=== PATIENT | male | born 1985 | race African-American/Black ===

== ENCOUNTER 2016-05-26 06:26 | Emergency (ER) | payer MEDICAID, OTHER ==
[~2016-05-26] VITALS: Ht 175.3 cm; Wt 90.7 kg
[~2016-05-26 06:26] MED LIST: IBUPROFEN600 MG ORAL
[2016-05-26 06:45] VITALS: BP 133/96
[2016-05-26 07:00] VITALS: BP 133/96
--- NOTE | 2016-05-26 07:27 | Emergency Room Report ---
History of Present Illness General Chief Complaint: Male Urogenital Problems Source: Patient Present Illness HPI 30-year-old male presents to ED for evaluation. Patient requests a female nurse as "witness". Patient states he is here for STD checkup. States he noticed a lesion on his penis a few days ago. Patient had a ready gone to [facility] for the same complaint. Patient was told there that he did not perform STD checks. Patient was recommended to go to any STD clinic but he has not gone. Patient came here. Patient denies any pain. Denies any fevers or chills. Denies any discharge. No other aggravating or relieving factors. Denies any other associated symptoms Allergies: Coded Allergies: BENZTROPINE (Verified Allergy, Unknown, 05/26/16) FLUPHENAZINE (Verified Allergy, Unknown, 05/26/16) HALOPERIDOL (Verified Allergy, Unknown, 05/26/16) LITHIUM (Verified Allergy, Unknown, 05/26/16) RISPERIDONE (Verified Allergy, Unknown, 05/26/16) ZIPRASIDONE (Verified Allergy, Unknown, 05/26/16) Patient History Past Medical History: psych hx Pertinent Family History: none Social History: Denies: alcohol use, drug use, smoking Immunizations: UTD Reviewed Nursing Documentation: PMH: Agreed, PSxH: Agreed Nursing Documentation-PMH History Of Psychiatric Problem: Yes - PTSD Review of Systems All Other Systems: negative except mentioned in HPI Physical Exam Vital Signs Date Time Temp Pulse Resp B/P Pulse Ox O2 Delivery O2 Flow Rate FiO2 05/26/16 06:30 97.9 66 18 133/96 99 Room Air Sp02 EP Interpretation: reviewed, normal General Appearance: no apparent distress, alert, GCS 15, non-toxic Head: normocephalic Eyes: bilateral eye PERRL, bilateral eye normal inspection ENT: normal ENT inspection Neck: normal inspection Respiratory: normal inspection Cardiovascular #1: normal inspection Gastrointestinal: normal bowel sounds, non tender, soft, non-distended, no guarding, no rebound Rectal: deferred Genitourinary: no CVA tenderness, other - chancre on penis. nontender Musculoskeletal: back normal Neurologic: alert, oriented x3, responsive, motor strength/tone normal, sensory intact, speech normal Psychiatric: normal inspection Skin: normal inspection Lymphatic: normal inspection Medical Decision Making Diagnostic Impression: Primary Impression: Abnormal urogenital findings ER Course 30-year-old male presents to ED with lesion on his penis Differential-cellulitis, dermatitis, STD Patient placed on stretcher. After initial history physical exam reveals a young male in no acute distress. Female radiology physician present. Patient has a 1 cm chancre on the shaft. non tender. no surrounding erythema/induration. no discharge patient asked us to "open and swab it". I explained to patient that he did not perform this type of testing in the ER. For that kind of testing he will need to go to be STD clinic, as recommended by the 2 previous hospitals he visited. I did offer him other testing such as RPR, HIV and gonorrhea chlamydia testing. Patient declined all testing if we will not "open and swab it". Patient appears clinically well, nontoxic. Patient can be discharged to home at this time without emergent additional testing and followup with STD clinic a routine basis Diagnoses-abnormal urogenital findings Stable and discharged to home. Followup with STD clinic. Last Vital Signs Date Time Temp Pulse Resp B/P Pulse Ox O2 Delivery O2 Flow Rate FiO2 05/26/16 07:00 97.9 18 133/96 99 Room Air 05/26/16 06:30 66 Status: unchanged Disposition: HOME, SELF-CARE Condition: Stable Referrals: [facility],REFERRING (PCP) Patient Instructions: Safe Sex JUANCHO MARTIN M.D. May 26, 2016 07:27
== END 2016-05-26 07:00 | disposition home or self-care (01) ==
LOC: EMR 06:50
DX: L98.9 Disorder of the skin and subcutaneous tissue, unspecified (principal); F43.10 Post-traumatic stress disorder, unspecified; Z88.8 Allergy status to other drugs, medicaments and biological substances
CPT/HCPCS: 99283